=== PATIENT | male | born 1985 | race Two or more races ===

== ENCOUNTER 2018-05-24 14:24 | Emergency (ER) | payer OTHER ==
[~2018-05-24] VITALS: Ht 154.9 cm; Wt 79.4 kg
--- NOTE | 2018-05-24 14:44 | NUR ---
PT IS IN ROOM #2A. DR SIDDIQI EVALUATED THE PT.
[2018-05-24] MEDS ORDERED: HYDROCODONE/APAP 5-325MG TABLET PO ONE (14:45)
[2018-05-24] MEDS ORDERED: IBUPROFEN 600 MG TABLET PO ONE (14:45)
[2018-05-24] MEDS ORDERED: DIAZEPAM 2 MG TABLET PO ONE (14:45)
[2018-05-24] MEDS ORDERED: IBUPROFEN 600 MG TABLET ONE (14:46)
[2018-05-24] MEDS ORDERED: HYDROCODONE/APAP 5-325MG TABLET ONE (14:46)
[2018-05-24] MEDS ORDERED: DIAZEPAM 2 MG TABLET ONE (14:47)
--- NOTE | 2018-05-24 15:33 | NUR ---
PT WAS D/C TO HOME. D/C INSTRUCTIONS GIVEN TO THE PT.
[2018-05-24 15:34] VITALS: BP 129/75
== END 2018-05-24 15:35 | disposition home or self-care (01) ==
LOC: ER 14:26
DX: M54.5 Low back pain (principal)
CPT/HCPCS: A4663

== ENCOUNTER 2024-06-12 20:34 | Emergency (ER) | payer MEDICAID, OTHER ==
[~2024-06-12] VITALS: Ht 175.3 cm; Wt 82.1 kg
[2024-06-12 21:16] LABS: BASOPHILS % (AUTO) 0.5 % (0.0-2.0); EOSINOPHILS # (AUTO) 0.1 K/uL (0.0-0.7); EOSINOPHILS % (AUTO) 1.9 % (0.0-7.0); HEMATOCRIT 41.9 % (36.7-47.1); HEMOGLOBIN 14.6 g/dL (12.5-16.3); LYMPHOCYTES # (AUTO) 1.9 K/uL (0.8-4.8); MEAN CORPUSCULAR HEMOGLOBIN 31.4 uug (23.8-33.4); MEAN CORPUSCULAR HGB CONC 35 g/dL (32.5-36.3); MEAN CORPUSCULAR VOLUME 90.5 fL (73.0-96.2); MONOCYTES # (AUTO) 0.4 K/uL (0.1-1.30); MONOCYTES % (AUTO) 7.4 % (0.0-11.0); NEUTROPHILS % (AUTO) 55.2 % (38.5-71.5); PLATELET COUNT (AUTO) 181 K/uL (152-348); RED BLOOD CELL COUNT(AUTO) 4.64 MIL/uL (4.06-5.63); RED CELL DISTRIBUTION WIDTH 13.6 % (12.1-16.2); WHITE BLOOD COUNT (AUTO) 5.4 K/uL (3.6-10.2)
[2024-06-12 21:25] LABS: DIFFERENTIAL COMMENT 1
[2024-06-12 21:28] LABS: CALCIUM 8.9 mg/dL (8.5-10.1); CREATININE 0.8 mg/dL (0.6-1.3)
[2024-06-12 21:44] LABS: ALBUMIN 4.1 g/dL (3.4-5.0); BILIRUBIN,TOTAL 0.3 mg/dL (0.2-1.0); TOTAL PROTEIN, SERUM 7.3 g/dL (6.4-8.2)
[2024-06-12] MEDS ORDERED: FAMOTIDINE 20 MG TABLET ONE (21:48)
[2024-06-12] MEDS ORDERED: LORAZEPAM 0.5 MG TABLET ONE ×2 (21:48→23:27)
[2024-06-12] MEDS ORDERED: ACETAMINOPHEN 500 MG TABLET ONE (21:48)
[2024-06-12] MEDS ORDERED: METOCLOPRAMIDE HCL 10 MG TABLET ONE (21:49)
[2024-06-12] MEDS: ACETAMINOPHEN 500 MG TABLET PO ONE (21:54)
[2024-06-12] MEDS: FAMOTIDINE 20 MG TABLET PO ONE (21:54)
[2024-06-12] MEDS: LORAZEPAM 0.5 MG TABLET PO ONE (21:54)
[2024-06-12] MEDS: METOCLOPRAMIDE HCL 10 MG TABLET PO ONE (21:54)
[2024-06-12] MEDS ORDERED: KETOROLAC TROMETHAMINE 30 MG INJ ONE (23:19)
[2024-06-12] MEDS: KETOROLAC TROMETHAMINE 30 MG INJ IM ONE (23:23)
[2024-06-13] VITALS: BP 141/85; TEMP 98.7; O2SAT 99
== END 2024-06-13 00:04 | disposition home or self-care (01) ==
LOC: ER 20:41
DX: F41.0 Panic disorder [episodic paroxysmal anxiety] (principal); R11.0 Nausea; R20.0 Anesthesia of skin; R51.9 Headache, unspecified; R07.89 Other chest pain; R03.0 Elevated blood-pressure reading, without diagnosis of hypertension; F17.290 Nicotine dependence, other tobacco product, uncomplicated; I10 Essential (primary) hypertension; Z60.2 Problems related to living alone
CPT/HCPCS: 99285; 71045; 80053; 83880; 85025; 84484; 36415; 93005; 96372; J1885; A4606; A4663; A9150; J8597